=== PATIENT | male | born 1930 | race Caucasian/White ===

== ENCOUNTER 2018-09-10 07:56 | Emergency (ER) | payer MEDICARE ==
--- OUTSIDE RECORDS SUMMARY | 2018-09-10 08:02 | XMS REPORT | Continuity of Care Document ---
:1930 External Reference #:[id number] Author Name Robert Agnes Care Team Providers Name Role Phone Jonh Ramos MD Primary Care Physician Unavailable Payers Date Identification Numbers Payment Provider Subscriber Effective: 2014 Policy Number: [id number] [facility] (Medicare) Giovanni Neal PayID: [id number] [address] Advance Directives Description No Information Available Problems Date Description Provider Status Onset: 07/12/2017 Ankylosing spondylitis Franco Kimble M.D., FACP Onset: 01/09/2017 Obstructive sleep apnea syndrome Franco Kimble M.D.,SUSIE Onset: 01/09/2017 Mixed hyperlipidemia Franco Kimble M.D., FACP Onset: 01/09/2017 Ex-smoker Franco Kimble M.D.,FACP Onset: 01/09/2017 Acquired thrombocytopenia Franco Kimble M.D., FACP Note: mild Onset: 01/09/2017 Asbestos-induced pleural plaque Jonh Ramos M.D., FACEric Active Onset: 01/09/2017 Impaired fasting glycaemia Jonh Ramos M.D.,FACEric Active Onset: 01/23/2017 Moderate persistent asthma Jonh Ramos M.D.,SUSIE Active Note: on PFTs Onset: 07/12/2017 Dupuytren's contracture Jonh Ramos M.D.,SUSIE Active Note: bilat Onset: 07/11/2018 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 First Brother due to Diabetes () - w/ complications First Sister bladder issues - iraheta First Sister due to Unknown Causes () Social History Type Date Description Comments Sex Unknown Marital Status Lives With Occupation Retired Tobacco Use Start: Unknown End: Former Cigarette Smoker Used to smoke 1 1/2 Unknown ppd Smoking Status Reviewed: 08/13/18 Former Cigarette Smoker Used to smoke 1 / ppd ETOH Use 01/09/2018 Denies alcohol use Tobacco Use Start: Unknown End: Patient is a former Smoked for 12 years Unknown smoker ages 20 to 32. Recreational Drug Use Denies Drug Use Exercise Type/Frequency Exercises regularly daily Allergies, Adverse Reactions, Alerts Date Description Reaction Status Severity Comments 08/26/2014 Succinylcholine Active Medications Medication Date Status Form Strength Qnty SIG Indications Ordering Provider Incruse 08/13 Active Aerosol 62.5mcg/I 30uni 1 inhalation J45.909 Domonique Ellipta nh ts once daily JUSTUS Conley Atorvastatin 07/11 Active Tablets 10mg 90tab take 1 E78.5 s tablet by Monika Ramos, mouth at Gregorio,FACP bedtime Knee Brace 01/30 Active Misc 2unit bilateral M17.9 Alfredito /2017 s knee brace Izabella, daily for M.D. stabilizatio n dx m35.7 History of OA of the knee Shingrix 01/09 Active Suspension 50mcg 2unit 0.5 Rec s milliliters Monika Ramos, intramuscula Gregorio,FACP r now and 2-3 months later repeat Neoprene 11/26 Active Misc 2unit use daily M25.561 Alfredito Patella Knee s for the Izabella, Support/Large right knee Carlos.Monika for stabilizatio n, Dz code 715.96 Baclofen 11/04 Active Tablets 10mg 10tab take 1 M54.5 [place] s tablets by Kitty, mouth twice M.D. a day Sulfasalazine 10/24 Active Tablets 500mg 270ta take one bs capsule/tab Izabella, every 8 M.D. hours (total of 3 per day) Spiriva 08/13 Active Aerosol 2.5mcg/Ac 4unit 2 puffs J45.40 Jonh Respimat t s every day Monika Ramos M.D.,[facility] Breo Ellipta 07/12 Active Aerosol 100-25mcg 60uni inhale 1 Jonh /Inh ts puff by Monika Ramos, mouth every M.D.,[facility] day Proventil HFA 01/23 Active Aerosol 108(90Bas 6.700 inhale two e) gm puffs by Monika Ramos, mcg/Act mouth four M.D.,FACP times a day as needed Aspirin Low Active Tablets DR 81mg 1 tabs by E78.5 Jonh Dose /0000 mouth every Monika Ramos, day M.D.,FAC Centrum Ultra Active Tablets 1 by mouth Unknown Mens /0000 every day Dorzolamide Active Solution 22.3-6.8m 2 drops both Unknown HCL/Timolol /0000 g/ml eyes every Maleate day Latanoprost Active Solution 0.005% 1 gtt Unknown /0000 bilateral eyes once daily at I-Caps Active Tablets 2 by mouth Unknown /0000 every day Eylea 00 Active Solution injection Unknown /0000 every 7-8 wks Rosuvastatin 01/09 Hx Tablets 5mg 90tab 1 by mouth E78.5 Jonh Calcium s every night Monika Ramos, - at bedtime M.D.,FACP 07/11 Hydrocodone-Ac 11/04 Hx Tablets 5-325mg 30tab 1 tab in the M54.5 Jim [place] etaminophen s morning 2tab Monika Ramos, - at bedtime M.D.,FACP 01/09 prn Benzonatate 06/03 Hx Capsules 200mg 30cap one by mouth s three times Amador, - daily as [employer] 09/01 needed for 2018 cough Arnuity 01/23 Hx Aerosol 100mcg/Ac 30uni Inhale 1 Jonh [facility] t ts puff By Monika Ramos, - Mouth Every M.D.,FAC Lipitor Hx Tablets 10mg one tab by Unknown /0000 mouth every - night at 12/26 Metformin HCL Hx Tablets ER 500mg 1 by mouth Unknown ER /0000 24HR every day - 12/26 Naproxen Hx Tablets 250mg take 1-2 tab Unknown /0000 by mouth q12 - hours as 09/01 needed pain /2018 and inflmmation Dorzolamide Hx Solution 22.3-6.8m Price, HCL/Timolol /0000 g/ml Andree Beauchamp - 01/09 Atorvastatin Hx Tablets 10mg 90tab one tab by E78.5 Jonh Calcium /0000 s mouth every Monika Ramos, - night at M.D.,FACP 01/09 Medications Administered in Office Medication Date Status Form Strength Qnty SIG Indications Ordering Provider Shingrix Administered Injection Jonh pharmacy 019 Monika Ramos, administered M.D.,[facility] Technetium TC Administered Injection Diaz Frank 99M 015 Brand, TetrofosminGregorio Per Unit Dose Up To 40 Millicuries Immunizations CPT Code Status Date Vaccine Reaction Lot # [id number] Given 03/12/2018 Fluzone High Dose [id number] Given 02/22/2017 Influenza Virus Vaccine, Quadrivalent, [id number] Split, Preservative Free 02376 Given 01/09/2017 Pneumococcal Conjugate Vaccine 13 no reaction [id number] Valent For Intramuscular Use 42951 Given 06/30/1997 Pneumonia Vaccine 21683 Given 08/25/1996 Tetanus And Diptheria (Td) For Adult Use Preservative Free Vital Signs Date Vital Result Comment 08/13/2018 10:15am Height 68.5 inches 5'8.50" Weight 235.00 lb Heart Rate 80 /min BP Systolic Sitting 140 mmHg Lue large cuff BP Diastolic Sitting 86 mmHg Lue large cuff Respiratory Rate 16 /min O2 % BldC Oximetry 94 % BMI (Body Mass Index) 35.2 kg/m2 07/11/2018 10:14am Height 68.5 inches 5'8.50" Weight 229.50 lb Heart Rate 72 /min BP Systolic 120 mmHg BP Diastolic 70 mmHg Body Temperature 97.4 F O2 % BldC Oximetry 97 % BMI (Body Mass Index) 34.4 kg/m2 05/05/2018 8:21am Height 68.5 inches 5'8.50" Weight 227.25 lb Heart Rate 82 /min BP Systolic Sitting 122 mmHg BP Diastolic Sitting 78 mmHg Pain Level 3 O2 % BldC Oximetry 94 % BMI (Body Mass Index) 34.0 kg/m2 02/13/2018 11:16am Height 68.5 inches 5'8.50" Weight 222.00 lb Heart Rate 72 /min BP Systolic Sitting 116 mmHg BP Diastolic Sitting 70 mmHg Respiratory Rate 14 /min O2 % BldC Oximetry 88 % BMI (Body Mass Index) 33.3 kg/m2 01/30/2018 9:29am Height 68.5 inches 5'8.50" Weight 221.38 lb Heart Rate 89 /min BP Systolic Sitting 118 mmHg BP Diastolic Sitting 68 mmHg Pain Level 4 O2 % BldC Oximetry 98 % BMI (Body Mass Index) 33.2 kg/m2 01/09/2018 9:59am Height 68.5 inches 5'8.50" Weight 221.00 lb Heart Rate 83 /min BP Systolic Sitting 118 mmHg BP Diastolic Sitting 66 mmHg Body Temperature 96.6 F O2 % BldC Oximetry 93 % BMI (Body Mass Index) 33.1 kg/m2 11/26/2017 8:58am Height 68.5 inches 5'8.50" Weight 233.25 lb Heart Rate 68 /min BP Systolic Sitting 127 mmHg BP Diastolic Sitting 72 mmHg Respiratory Rate 14 /min Pain Level 2 BMI (Body Mass Index) 34.9 kg/m2 11/04/2017 3:33pm Height 68.5 inches 5'8.50" Weight 232.00 lb Heart Rate 80 /min BP Systolic 130 mmHg BP Diastolic 78 mmHg O2 % BldC Oximetry 95 % BMI (Body Mass Index) 34.8 kg/m2 10/24/2017 11:47am Height 68.5 inches 5'8.50" Weight 234.00 lb Heart Rate 74 /min BP Systolic 130 mmHg BP Diastolic 70 mmHg Pain Level 4 O2 % BldC Oximetry 94 % BMI (Body Mass Index) 35.1 kg/m2 09/02/2017 10:56am Height 68.5 inches 5'8.50" Weight 244.25 lb Heart Rate 84 /min BP Systolic Sitting 128 mmHg BP Diastolic Sitting 72 mmHg Respiratory Rate 14 /min Body Temperature 97.9 F Pain Level 2 BMI (Body Mass Index) 36.6 kg/m2 08/13/2017 9:05am Height 68.5 inches 5'8.50" Weight 242.00 lb Heart Rate 84 /min BP Systolic Sitting 128 mmHg BP Diastolic Sitting 68 mmHg Respiratory Rate 14 /min O2 % BldC Oximetry 95 % BMI (Body Mass Index) 36.3 kg/m2 Neck Circumference in inches 17.5 07/12/2017 10:19am Height 68.5 inches 5'8.50" Weight 241.00 lb Heart Rate 94 /min BP Systolic Sitting 138 mmHg BP Diastolic Sitting 80 mmHg Body Temperature 96.9 F O2 % BldC Oximetry 94 % BMI (Body Mass Index) 36.1 kg/m2 01/09/2017 10:11am Weight 234.00 lb Heart Rate 72 /min BP Systolic Sitting 140 mmHg BP Diastolic Sitting 80 mmHg Body Temperature 97.0 F O2 % BldC Oximetry 97 % 12/26/2016 9:02am Height 68.5 inches 5'8.50" Weight 233.00 lb Heart Rate 96 /min BP Systolic 144 mmHg BP Diastolic 92 mmHg Body Temperature 97.9 F O2 % BldC Oximetry 98 % BMI (Body Mass Index) 34.9 kg/m2 10/29/2014 9:04am Height 68.5 inches 5'8.50" Weight 229.00 lb w/o shoes Heart Rate 84 /min reg BP Systolic Sitting 112 mmHg Lue, reg cuff BP Diastolic Sitting 70 mmHg Lue, reg cuff BP Systolic Standing 110 mmHg Lue BP Diastolic Standing 74 mmHg Lue Respiratory Rate 18 /min BMI (Body Mass Index) 34.3 kg/m2 Ejection Fraction 55-60% visual Ef as of 08/18/14 08/26/2014 12:04pm Height 68.5 inches 5'8.50" Weight 239.00 lb w/o shoes Heart Rate 76 /min reg BP Systolic 144 mmHg LA, reg cuff, sitting BP Diastolic 90 mmHg LA, reg cuff, sitting BP Systolic Sitting 140 mmHg LA, reg cuff BP Diastolic Sitting 80 mmHg LA, reg cuff BP Systolic Standing 130 mmHg LA BP Diastolic Standing 84 mmHg LA Respiratory Rate 18 /min BMI (Body Mass Index) 35.8 kg/m2 Results Test Date Facility Test Result H/L Range Note Lipid Profile 08/06/2018 [facility] Triglycerides 110 mg/dL 1 (Trig/Chol/HDL) [address] [place] [address] [phone] Cholesterol 155 mg/dL 2 HDL Cholesterol 54.5 mg/dL 3 LDL Cholesterol 79 mg/dL 4 Basic Metabolic Panel 08/06/2018 [facility] Sodium 141 mmol/L N 135-[address] [place] [address] [phone] Potassium 4.0 mmol/L N 3.5-5.0 Chloride 106 mmol/L N 101-111 Co2 Carbon Dioxide 26 mmol/L N 22-32 Anion Gap 9 mmol/L N 2-11 Glucose 131 mg/dL High 70-100 Blood Urea Nitrogen 15 mg/dL N 6-24 Creatinine 1.11 mg/dL N 0.67-1.17 BUN/Creatinine Ratio 13.5 N 8-20 Calcium 9.2 mg/dL N 8.6-10.3 Egfr Non- 62.8 >60 Egfr 76.0 >60 5 Laboratory test 05/09/2018 [facility] Erythrocyte Sed 10 mm/Hr N 0-40 [address] [place] [address] [phone] C Reactive Protein 1.07 mg/L N <8.01 7 CBC Auto Diff 05/09/2018 [facility] White Blood 6.2 10^3/uL N 3.5-10.[address] [place] [address] [phone] Red Blood Count 5.05 10^6/uL N 4.00-5.40 Hemoglobin 16.0 g/dL N 14.0-18.0 Hematocrit 48 % N 42-52 Mean Corpuscular Volume 94 fL N 80-94 Mean Corpuscular Hemoglobin 32 pg High 27-31 Mean Corpuscular HGB Conc 34 g/dL N 31-36 Red Cell Distribution Width 14 % N 10.5-15 Platelet Count 134 10^3/uL Low 150-450 Mean Platelet Volume 8.0 fL N 7.4-10.4 Abs Neutrophils 3.9 10^3/uL N 1.5-7.7 Abs Lymphocytes 1.5 10^3/uL N 1.0-4.8 Abs Monocytes 0.6 10^3/uL N 0-0.8 Abs Eosinophils 0.2 10^3/uL N 0-0.6 Abs Basophils 0 10^3/uL N 0-0.2 Abs Nucleated RBC 0 10^3/uL Granulocyte % 62.8 % Lymphocyte % 23.9 % Monocyte % 10.2 % Eosinophil % 2.9 % Basophil % 0.2 % Nucleated Red Blood Cells % 0 Comp Metabolic Panel 05/09/2018 [facility] Sodium 143 mmol/L N 135-[address] [place] [address] [phone] Potassium 3.9 mmol/L N 3.5-5.0 Chloride 108 mmol/L N 101-111 Co2 Carbon Dioxide 28 mmol/L N 22-32 Anion Gap 7 mmol/L N 2-11 Glucose 97 mg/dL N 70-100 Blood Urea Nitrogen 17 mg/dL N 6-24 Creatinine 1.01 mg/dL N 0.67-1.17 BUN/Creatinine Ratio 16.8 N 8-20 Calcium 9.2 mg/dL N 8.6-10.3 Total Protein 6.9 g/dL N 6.4-8.9 Albumin 4.5 g/dL N 3.2-5.2 Globulin 2.4 g/dL N 2-4 Albumin/Globulin Ratio 1.9 N 1-3 Total Bilirubin 0.60 mg/dL N 0.2-1.0 Alkaline Phosphatase 95 U/L N 34-104 Alt 25 U/L N 7-52 Ast 24 U/L N 13-39 Egfr Non- 70.2 >60 Egfr 84.9 >60 8 Laboratory test 11/26/2017 [facility] Erythrocyte Sed 12 mm/Hr N 0-[address] [place] [address] [phone] C Reactive Protein 1.55 mg/L N <8.01 Lipid Profile 11/26/2017 [facility] Triglycerides 203 mg/dL 9 (Trig/Chol/HDL) [address] [place] [address] [phone] Cholesterol 141 mg/dL 10 HDL Cholesterol 33.3 mg/dL 11 LDL Cholesterol 67 mg/dL 12 CBC Auto Diff 11/26/2017 [facility] White Blood 5.4 10^3/uL N 3.5-10.[address] [place] [address] [phone] Red Blood Count 5.15 10^6/uL N 4.00-5.40 Hemoglobin 16.2 g/dL N 14.0-18.0 Hematocrit 47 % N 42-52 Mean Corpuscular Volume 92 fL N 80-94 Mean Corpuscular Hemoglobin 32 pg High 27-31 Mean Corpuscular HGB Conc 34 g/dL N 31-36 Red Cell Distribution Width 14 % N 10.5-15 Platelet Count 127 10^3/uL Low 150-450 Mean Platelet Volume 8.2 um3 N 7.4-10.4 Abs Neutrophils 3.4 10^3/uL N 1.5-7.7 Abs Lymphocytes 1.3 10^3/uL N 1.0-4.8 Abs Monocytes 0.5 10^3/uL N 0-0.8 Abs Eosinophils 0.2 10^3/uL N 0-0.6 Abs Basophils 0 10^3/uL N 0-0.2 Abs Nucleated RBC 0 10^3/uL Granulocyte % 63.2 % N 38-83 Lymphocyte % 23.5 % Low 25-47 Monocyte % 9.5 % High 0-7 Eosinophil % 3.2 % N 0-6 Basophil % 0.6 % N 0-2 Nucleated Red Blood Cells % 0.2 Comp Metabolic Panel 11/26/2017 [facility] Sodium 141 mmol/L N 135-[address] [place] [address] [phone] Potassium 4.4 mmol/L N 3.5-5.0 Chloride 106 mmol/L N 101-111 Co2 Carbon Dioxide 27 mmol/L N 22-32 Anion Gap 8 mmol/L N 2-11 Glucose 122 mg/dL High 70-100 Blood Urea Nitrogen 14 mg/dL N 6-24 Creatinine 1.10 mg/dL N 0.67-1.17 BUN/Creatinine Ratio 12.7 N 8-20 Calcium 9.5 mg/dL N 8.6-10.3 Total Protein 6.9 g/dL N 6.4-8.9 Albumin 4.4 g/dL N 3.2-5.2 Globulin 2.5 g/dL N 2-4 Albumin/Globulin Ratio 1.8 N 1-3 Total Bilirubin 0.80 mg/dL N 0.2-1.0 Alkaline Phosphatase 70 U/L N 34-104 Alt 24 U/L N 7-52 Ast 29 U/L N 13-39 Egfr Non- 63.6 >60 Egfr 77.0 >60 13 Laboratory test 09/02/2017 [facility] Erythrocyte Sed 8 mm/Hr N 0-[address] [place] [address] [phone] C Reactive Protein 1.49 mg/L N < 5.00 14 Creatine Kinase(CK) 106 U/L N 10-223 TSH (Thyroid Stim Horm) 2.46 mcIU/mL N 0.34-5.60 Hla B27 09/02/2017 [facility] Hla B27 Negative [address] [place] [address] [phone] Hla B27 Interp See Comment 16 Vitamin B12 And 09/02/2017 [facility] Vitamin B12 711 pg/mL N 180-914 17 Folate Serum [address] [place] [address] [phone] Folic Acid (Folate) > 20.00 ng/mL >3.99 Laboratory test 08/15/2017 [facility] PSA Screening 2.627 0- 4.0 [address] ng/[place] [address] [phone] Order 08/13/2017 [facility] [address] <pending> Laboratory test 12/26/2016 [facility] Glucose 115 mg/dL High 70-[address] [place] [address] [phone] Laboratory test 12/26/2016 [facility] Hemoglobin A1c 6.1 5-7 finding CBC Auto Diff 12/26/2016 [facility] White Blood 6.0 N 3.5- 10.[address] Count 10^3/[place] [address] [phone] Red Blood Count 5.17 10^6/uL N 4.0-5.4 Hemoglobin 16.0 g/dL N 14.0-18.0 Hematocrit 48 % N 42-52 Mean Corpuscular Volume 93 fL N 80-94 Mean Corpuscular Hemoglobin 31 pg N 27-31 Mean Corpuscular HGB Conc 33 g/dL N 31-36 Red Cell Distribution Width 14 % N 10.5-15 Platelet Count 128 10^3/uL Low 150-450 Mean Platelet Volume 8 um3 N 7.4-10.4 Abs Neutrophils 4.0 10^3/uL N 1.5-7.7 Abs Lymphocytes 1.3 10^3/uL N 1.0-4.8 Abs Monocytes 0.5 10^3/uL N 0-0.8 Abs Eosinophils 0.2 10^3/uL N 0-0.6 Abs Basophils 0 10^3/uL N 0-0.2 Abs Nucleated RBC 0 10^3/uL N Granulocyte % 66.3 % N 38-83 Lymphocyte % 21.6 % Low 25-47 Monocyte % 8.7 % N 1-9 Eosinophil % 2.8 % N 0-6 Basophil % 0.6 % N 0-2 Nucleated Red Blood Cells % 0.1 N Laboratory test 12/26/2016 [facility] TSH (Thyroid 1.98 mcIU/mL N 0.34-5.60 [address] Stim Horm) [place] [address] [phone] Comp Metabolic 12/26/2016 [facility] Sodium 140 mmol/L N 133- [address] [place] [address] [phone] Potassium 4.3 mmol/L N 3.5-5.0 Chloride 105 mmol/L N 101-111 Co2 Carbon Dioxide 29 mmol/L N 22-32 Anion Gap 6 mmol/L N 2-11 Blood Urea Nitrogen 16 mg/dL N 6-24 Creatinine 1.11 mg/dL N 0.67-1.17 BUN/Creatinine Ratio 14.4 N 8-20 Calcium 9.3 mg/dL N 8.6-10.3 Total Protein 6.9 g/dL N 6.4-8.9 Albumin 4.4 g/dL N 3.2-5.2 Globulin 2.5 g/dL N 2-4 Albumin/Globulin Ratio 1.8 N 1-3 Total Bilirubin 0.90 mg/dL N 0.2-1.0 Alkaline Phosphatase 87 U/L N 34-104 Alt 23 U/L N 7-52 Ast 20 U/L N 13-39 Egfr Non- 63.1 N >60 Egfr 81.2 N >60 20 Lipid Profile 12/26/2016 [facility] Triglycerides 188 mg/dL N 21 (Trig/Chol/HDL) [address] [place] [address] [phone] Cholesterol 149 mg/dL N 22 HDL Cholesterol 39.9 mg/dL N 23 LDL Cholesterol 72 mg/dL N 24 CBC Auto Diff 09/08/2014 [facility] White Blood 6.5 10^3/uL N 4.8-10.[address] [place] [address] [phone] Red Blood Count 5.16 10^6/uL N 4.0-5.4 Hemoglobin 16.2 g/dL N 14.0-18.0 Hematocrit 48 % N 42-52 Mean Corpuscular Volume 93 fL N 80-94 Mean Corpuscular Hemoglobin 32 pg High 27-31 Mean Corpuscular HGB Conc 34 g/dL N 31-36 Red Cell Distribution Width 14 % N 10.5-15 Platelet Count 139 10^3/uL Low 150-450 Mean Platelet Volume 8 um3 N 7.4-10.4 Abs Neutrophils 3.4 10^3/uL N 1.5-7.7 Abs Lymphocytes 2.1 10^3/uL N 1.0-4.8 Abs Monocytes 0.7 10^3/uL N 0-0.8 Abs Eosinophils 0.2 10^3/uL N 0-0.6 Abs Basophils 0 10^3/uL N 0-0.2 Abs Nucleated RBC 0.01 10^3/uL N Granulocyte % 53.1 % N 38-83 Lymphocyte % 31.7 % N 25-47 Monocyte % 11.1 % High 1-9 Eosinophil % 3.5 % N 0-6 Basophil % 0.6 % N 0-2 Nucleated Red Blood Cells % 0.1 N 1 Desirable: <150 Borderline High: 150-199 High: 200-499 Very High: >500 2 Desirable: <200 Borderline High: 200-239 High: >239 3 Low: <40 Desirable: 40-60 High: >60 4 Desirable: <100 Near Optimal: 100-129 Borderline High: 130-159 High: 160-189 Very High: >189 5 Because ethnic data is not always readily available, this report includes an eGFR for both -Americans and non- Americans. The National Kidney Disease Education Program (NKDEP) does not endorse the use of the MDRD equation for patients that are not between the ages of 18 and 70, are , have extremes of body size, muscle mass, or nutritional status, or are non- or non-. According to the National Kidney Foundation, irrespective of diagnosis, the stage of the disease is based on the level of kidney function: Stage Description GFR(mL/min/1.73 m(2)) 1 Kidney damage with normal or decreased GFR 90 2 Kidney damage with mild decrease in GFR 60-89 3 Moderate decrease in GFR 30-59 4 Severe decrease in GFR 15-29 5 Kidney failure <15 (or dialysis) 6 Please check labs today 7 Please check labs today 8 Because ethnic data is not always readily available, this report includes an eGFR for both -Americans and non- Americans. The National Kidney Disease Education Program (NKDEP) does not endorse the use of the MDRD equation for patients that are not between the ages of 18 and 70, are , have extremes of body size, muscle mass, or nutritional status, or are non- or non-. According to the National Kidney Foundation, irrespective of diagnosis, the stage of the disease is based on the level of kidney function: Stage Description GFR(mL/min/1.73 m(2)) 1 Kidney damage with normal or decreased GFR 90 2 Kidney damage with mild decrease in GFR 60-89 3 Moderate decrease in GFR 30-59 4 Severe decrease in GFR 15-29 5 Kidney failure <15 (or dialysis) 9 Desirable: <150 Borderline High: 150-199 High: 200-499 Very High: >500 10 Desirable: <200 Borderline High: 200-239 High: >239 11 Low: <40 Desirable: 40-60 High: >60 12 Desirable: <100 Near Optimal: 100-129 Borderline High: 130-159 High: 160-189 Very High: >189 13 Because ethnic data is not always readily available, this report includes an eGFR for both -Americans and non- Americans. The National Kidney Disease Education Program (NKDEP) does not endorse the use of the MDRD equation for patients that are not between the ages of 18 and 70, are , have extremes of body size, muscle mass, or nutritional status, or are non- or non-. According to the National Kidney Foundation, irrespective of diagnosis, the stage of the disease is based on the level of kidney function: Stage Description GFR(mL/min/1.73 m(2)) 1 Kidney damage with normal or decreased GFR 90 2 Kidney damage with mild decrease in GFR 60-89 3 Moderate decrease in GFR 30-59 4 Severe decrease in GFR 15-29 5 Kidney failure <15 (or dialysis) 14 Acute inflammation: >10.00 15 REFERENCE VALUE Not Applicable 16 RESULT: HLA-B27 antigen was not detected. ADDITIONAL INFORMATION Method: Flow Cytometry Performing Laboratory CLIA# [id number] Test Performed by: [address] [address] 17 Normal Range 180 to 914 Indeterminate Range 145 to 180 Deficient Range <145 18 Serum levels of PSA measured using the Nicole Keira DXI Hybritech immunoassay should not be interpreted as absolute evidence of the presence or absence of disease. The PSA value should be used in conjunction with other pertinent clinical diagnostic procedures. The values obtained with different assay methods or kits cannot be used interchangeably. 19 FASTING 10 HOUR 20 Because ethnic data is not always readily available, this report includes an eGFR for both -Americans and non- Americans. The National Kidney Disease Education Program (NKDEP) does not endorse the use of the MDRD equation for patients that are not between the ages of 18 and 70, are , have extremes of body size, muscle mass, or nutritional status, or are non- or non-. According to the National Kidney Foundation, irrespective of diagnosis, the stage of the disease is based on the level of kidney function: Stage Description GFR(mL/min/1.73 m(2)) 1 Kidney damage with normal or decreased GFR 90 2 Kidney damage with mild decrease in GFR 60-89 3 Moderate decrease in GFR 30-59 4 Severe decrease in GFR 15-29 5 Kidney failure <15 (or dialysis) 21 Desirable <150 Borderline high 150-199 High 200-499 Very High >500 22 Desirable <200 Borderline high 200-239 High >239 23 Low <40 Desirable: 40-60 High: >60 24 Desirable: <100 mg/dL Near Optimal: 100-129 mg/dL Borderline High: 130-159 mg/dL High: 160-189 mg/dL Very High: >189 mg/dL Procedures Date Code Description Status 12/04/2017 [id number] Diabetic Retinal Eye Exam Completed 08/13/2017 12799 Pulmonary Stress Test Simple Completed 08/13/2017 10063 Pulmonary Stress Testing, Inc Measurement Heart Rate, Completed Oximetry 01/14/2017 97144 Diffusing Capacity Completed 01/14/2017 55331 Plethysmography Determination Lung Volumes & Per Completed Airway Resist 01/14/2017 67788 Pulmonary Function><Bronchodil Completed 12/26/2016 09776 EKG Tracing & Interpretation Completed 09/17/2014 62978 Stress Test Completed 09/17/2014 61122 Myocardial Perfusion Imaging Tomographic (Spect) Completed Multiple Studies 08/26/2014 05441 EKG Tracing & Interpretation Completed 08/18/2014 95606 ECHO Transthoracic, Real-Time 2D With Doppler And Completed Color Flow 06/12/2010 [id number] Colonoscopy Completed 04/11/2010 25222 EKG, Interpretation Only Completed Encounters Type Date Location Provider Dx Diagnosis Office Visit 07/11/2018 [facility] Frank Z00.01 Encounter for 10:[facility] [place] Gregorio Ramos,FACP general adult [address] medical exam w abnormal findings 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 spondylitis of multiple sites in spine Z79.899 Other skilled nursing (current) drug therapy M54.5 Low back pain M17.9 Osteoarthritis of knee, unspecified Office Visit 02/13/2018 Pulmonology And Shirley J45.909 Unspecified asthma , 11:30a Sleep Services Of MD Luis uncomplicated [facility] G47.33 Obstructive sleep apnea (adult) (pediatric) J98.4 Other disorders of lung Office Visit 01/30/2018 9:20a Rheumatology Alfredito M45.0 Ankylosing Services Of Xavier Parekh M.D. 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 spondylitis of multiple sites in spine M54.5 Low back pain G62.9 Polyneuropathy, unspecified M25.561 Pain in right knee Z79.899 Other skilled nursing (current) drug therapy Office Visit 11/04/2017 [facility] Vira Beard M54.5 Low back pain 3:20p Medicine Tiffany Tang M.D. Rd Office Visit 10/24/2017 Rheumatology Dwayne Rodriguez5.0 Ankylosing 11:40a Services Of Xavier Perkins spondylitis of multiple sites in spine M79.1 Myalgia R53.1 Weakness G62.9 Polyneuropathy, unspecified Office Visit 09/02/2017 11:00a Rheumatology Alfredito Rice5.0 Ankylosing Services Of Xavier Parekh M.D. spondylitis of multiple sites in spine M79.1 Myalgia R53.1 Weakness G62.9 Polyneuropathy, unspecified M25.561 Pain in right knee Office Visit 01/09/2017 10:20a [facility] Internal Jonh Frank R06.02 Shortness of Medicine Tiffany Ramos M.D.,FACP breath [address] I10 Essential (primary) hypertension Z23 Encounter for immunization Office Visit 12/26/2016 9:00a [facility] Internal Zsofipapo Trujillo, R06.02 Shortness of Medicine - [place] [employer] breath Rd E66.9 Obesity, unspecified E78.5 Hyperlipidemia, unspecified R73.9 Hyperglycemia, unspecified R03.0 Elevated blood-pressure reading, w/o diagnosis of htn G47.33 Obstructive sleep apnea (adult) (pediatric) M25.561 Pain in right knee M25.551 Pain in right hip Office Visit 10/29/2014 9:15a [facility] Diaz D. 786.05 Shortness Of Of Xavier Lopez M.D. Breath Office Visit 08/26/2014 12:15p [facility] Diaz Frank 786.05 Shortness Of Of [facility] Gregorio Lopez Breath Plan of Treatment Future Appointment(s):09/04/2018 9:30 am - Shirley Smith MD at Pulmonology And Sleep Services Of [facility]01/08/2019 8:40 am - Rosmery Holder MD at [facility] Internal Medicine [facility]11/04/2018 8:00 am - Alfredito Parekh M.D. at Rheumatology Services Of [facility]08/13/2018 - Shirley Smith MDJ45.909 Unspecified asthma, uncomplicatedNew Medication:Incruse Ellipta 62.5 mcg/Inh - 1 inhalation once elpatE90.33 Obstructive sleep apnea (adult) (pediatric)J98.4 Other disorders of lungNew Xrays:CT Chest W/O, Ordered: 08/13/18Follow up:2 wks, CT flfkjF98.35 Body mass index (BMI) 35.0-35.9, adult
[2018-09-10 08:11] VITALS: BP 153/76
--- NOTE | 2018-09-10 08:32 | UC ---
General HPI - HPI Summary HPI Summary: Here with - few days ago woke with red itchy spot on his forehead, it has gotten more red and discolored and they tried to get him in to see his regular agriculture worker -Dr. Barboza but she is not able to see him until Mid-September. No new creams No bites or trauma. Not painful but feels it there. No vision changes. No fever. No URI symptoms. Otherwise feeling well. Meds reviewed. - History of Current Complaint Chief Complaint: UCSkin Stated Complaint: SKIN ISSUE Time Seen by Provider: 09/10/18 08:19 Pain Intensity: 0 - Allergy/Home Medications Allergies/Adverse Reactions: Allergies Allergy/AdvReac Type Severity Reaction Status Date / Time No Known Allergies Allergy Verified 10/15/14 08:44 Home Medications: Home Medications Albuterol HFA INHALER* [Ventolin HFA Inhaler*] 2 puff PO Q6H PRN 09/10/18 [ History Confirmed 09/10/18] Fluticasone/Vilanterol MDI(NF) [Breo Ellipta MDI 100/25(NF)] 1 puff PO Q72HR MDD 1 09/10/18 [History Confirmed 09/10/18] PMH/Surg Hx/FS Hx/Imm Hx Previously Healthy: Yes Endocrine History: Dyslipidemia Respiratory History: Asthma - Surgical History Surgical History: Yes Surgery Procedure, Year, and Place: R knee, TURP, chest mass biopsy, BILATERAL CATARACTS - Social History Alcohol Use: None Substance Use Type: None Smoking Status (MU): Never Smoked Tobacco Review of Systems All Other Systems Reviewed And Are Negative: Yes Skin: Positive: Rash Is Patient Immunocompromised?: No Physical Exam Triage Information Reviewed: Yes Appearance: Well-Appearing, No Pain Distress Vital Signs: Initial Vital Signs Temp 97.4 F 09/10/18 08:03 Pulse 93 09/10/18 08:03 Resp 18 09/10/18 08:03 BP 153/76 09/10/18 08:03 Pulse Ox 96 09/10/18 08:03 Vital Signs Reviewed: Yes Eyes: Positive: Conjunctiva Clear ENT: Positive: Normal ENT inspection Dental Exam: Normal Neck: Positive: Supple, Nontender Skin Exam: Other - 3-4 cm erythematous lesion on forehead slightly involuted vesicular appearing more erythematous center Course/Dx - Course Course Of Treatment: This is an 88 yr old with a forehead lesions 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 Barboza's office will see you today, as long as you arrive by 10:30 Blood pressure is slightly elevated, recommend follow up with your PCP - Diagnoses Provider Diagnosis: Shingles Discharge - Sign-Out/Discharge Documenting (check all that apply): Patient Departure All imaging exams completed and their final reports reviewed: No Studies - Discharge Plan Condition: Good Disposition: HOME Prescriptions: ValACYclovir (*) [Valtrex 1 GM(*)] 1 gm PO Q8HR #21 tab Patient Education Materials: Shingles (ED) Referrals: Rosmery Holder MD [Primary Care Provider] - Additional Instructions: Start Valtrex as prescribed - Drink plenty of water while taking medication Monitor rash - if rash persists or worsens despite starting medication, recommend follow up with PCP sooner Dr. Barboza's office will see you today, as long as you arrive by 10:30 Blood pressure is slightly elevated, recommend follow up with your PCP - Billing Disposition and Condition Condition: GOOD Disposition: Home
== END 2018-09-10 08:45 | disposition home or self-care (01) ==
LOC: UCEAST 07:56
DX: B02.9 Zoster without complications (principal); E78.5 Hyperlipidemia, unspecified; J45.909 Unspecified asthma, uncomplicated
CPT/HCPCS: 99212; G0463

== ENCOUNTER 2021-01-17 06:35 | Inpatient (IN) ==
[~2021-01-17 06:35] MED LIST: Buffered Lidocaine 1% SYRIN 1 ml INTRADERM ONE; Famotidine IV 10 MG/ML 2 ml VIAL (20 mg) IV ONE; Lactated Ringers 1000 ml BAG 1,000 ML IV SCH
[2021-01-17] MEDS ORDERED: Famotidine IV 10 MG/ML 2 ml VIAL (20 mg) ONE (06:54)
[2021-01-17] MEDS ORDERED: ceFAZolin 2 GM in NS PREMIX 2 GM/100 ML BAG IVPB ONE (06:54)
[2021-01-17] MEDS ORDERED: Glycopyrrolate IV 0.2 MG/ML 1 ML VIAL ONE (07:10)
[2021-01-17] MEDS ORDERED: Propofol 10 MG/ML 20 ML BTL ONE (07:10)
[2021-01-17] MEDS ORDERED: fentaNYL 100 mcg/2 ml 50 MCG/ML VIAL ONE (07:10)
[2021-01-17] MEDS ORDERED: Phenylephrine IV 10 MG/ML 1 ml VIAL ONE (07:11)
[2021-01-17] MEDS ORDERED: Lidocaine 2% PF 5 ML VIAL ONE (07:11)
[2021-01-17] MEDS ORDERED: Acetaminophen IV 1 GM/100ML 100 ML IV ONE (07:11)
[2021-01-17] MEDS ORDERED: ROPIVACAINE 5 MG/ML 30 ML BTL (0.5%) ONE (07:13)
[2021-01-17] MEDS ORDERED: Buffered Lidocaine 1% SYRIN 1 ml INTRADERM ONE (07:17)
[2021-01-17] MEDS ORDERED: Propofol 10 mg/ml 100 ML BTL 100 ML ONE (07:22)
[2021-01-17] MEDS ORDERED: Morphine 2 MG/ML SYRINGE IV PRN (10:15)
[2021-01-17] MEDS ORDERED: diPHENhydraMINE IV 50 MG/ML 1 ml VIAL (BENADRYL) IV PRN (10:15)
[2021-01-17] MEDS ORDERED: Ondansetron ODT 4 mg TAB 4 MG TAB PO PRN (10:15)
[2021-01-17] MEDS ORDERED: Ondansetron 4 mg VIAL 2 MG/ML 2 ml VIAL IV PRN (10:15)
[2021-01-17] MEDS ORDERED: diPHENhydraMINE 25 mg TAB PO PRN (10:15)
[2021-01-17] MEDS ORDERED: Polyethylene Glycol 3350 17 GM PACKET PO PRN (10:21)
[2021-01-17] MEDS ORDERED: Magnesium Hydroxide LIQ 30 ML UDC PO PRN (10:21)
[2021-01-17] MEDS ORDERED: Senna TAB 8.6 mg TAB PO PRN (10:21)
[2021-01-17] MEDS ORDERED: Albuterol HFA INHALER 8 gm MDI INH PRN (10:22)
[2021-01-17] MEDS: Lactulose 30 ml UDC PO SCH ×2 (13:59→19:17)
[2021-01-17] MEDS: ceFAZolin 1 GM ADVAN 1 GM in NS 0.9% 50 ML 50 ML IVPB SCH (16:46)
[2021-01-17] MEDS: Mometasone/Formoter 100/5 MDI INH SCH (19:05)
[2021-01-17] MEDS: Magnesium Hydroxide LIQ 30 ML UDC PO SCH (19:17)
[2021-01-17] MEDS ORDERED: Latanoprost 0.005% 2.5 ml BTL LEFT EYE SCH (21:00)
[2021-01-18] MEDS: Lactated Ringers 1000 ml BAG 1,000 ML IV SCH ×2 (00:01→12:15)
[2021-01-18] MEDS: ceFAZolin 1 GM ADVAN 1 GM in NS 0.9% 50 ML 50 ML IVPB SCH ×2 (00:03→08:29)
[2021-01-18] MEDS: Mometasone/Formoter 100/5 MDI INH SCH (07:12)
[2021-01-18 07:17] LABS: Hematocrit 34 % (42-52); Hemoglobin 11.9 g/dL (14.0-18.0); Mean Platelet Volume 7.6 fL (7.4-10.4); Platelet Count 125 10^3/uL (150-450)
[2021-01-18 07:34] LABS: Calcium 8.4 mg/dL (8.6-10.3); EGFR African American 78.1 (>60); EGFR Non-African American 64.5 (>60); Potassium 4.1 mmol/L (3.5-5.0)
[2021-01-18] MEDS: Magnesium Hydroxide LIQ 30 ML UDC PO SCH (08:30)
[2021-01-18] MEDS: Lactulose 30 ml UDC PO SCH ×2 (08:30→14:16)
[2021-01-18] MEDS ORDERED: Vitamin THERAPEUTIC TAB PO SCH (09:00)
[2021-01-18 11:54] VITALS: BP 134/59
[2021-01-18] MEDS ORDERED: NS 0.9% 250 ml 250 ML IV ONE (14:08)
== END 2021-01-18 16:10 | disposition home or self-care (01) | DRG 470 ==
LOC: AA 06:35 → SSU 10:15
PROVIDERS: ADMIT Orthopaedic Surgery Adult Reconstructive Orthopaedic Surgery; ATTEND Orthopaedic Surgery Adult Reconstructive Orthopaedic Surgery

== ENCOUNTER 2021-05-18 06:51 | Inpatient (IN) ==
[~2021-05-18 06:51] MED LIST changes: +DiMENhydriNATE IV 50 mg/ml 1 ml VIAL IV PUSH PRN; -Famotidine IV 10 MG/ML 2 ml VIAL (20 mg) IV ONE; +Naloxone 0.4 mg VIAL 0.4 mg/ml 1 ml VIAL IV PRN; +Ondansetron 4 mg VIAL 2 MG/ML 2 ml VIAL IV PRN; +fentaNYL 100 mcg/2 ml 50 MCG/ML VIAL IV PRN; +oxyCODONE/Acetamin 5/325 mg TAB PO PRN
[2021-05-18] MEDS ORDERED: ceFAZolin 2 GM PREMIX 2 GM/50 ML BAG ONE (07:16)
[2021-05-18] MEDS ORDERED: Midazolam 5 mg/5 ml VIAL 1 mg/ml 5 ml VIAL (5 mg) ONE (09:00)
[2021-05-18] MEDS ORDERED: fentaNYL 250 mcg/5 ml 50 MCG/ML 5 ml VIAL (250 MCG) ONE (09:00)
[2021-05-18] MEDS ORDERED: Phenylephrine 40 mcg/mL 10mL (400mcg) SYRINGE ONE (09:53)
[2021-05-18] MEDS ORDERED: EPHEDrine (Pressors) 50 MG/ML VIAL ONE (11:09)
[2021-05-18] MEDS ORDERED: Ondansetron ODT 4 mg TAB 4 MG TAB PO PRN (11:40)
[2021-05-18] MEDS ORDERED: diPHENhydraMINE 25 mg TAB PO PRN (11:40)
[2021-05-18] MEDS ORDERED: Ondansetron 4 mg VIAL 2 MG/ML 2 ml VIAL IV PRN (11:40)
[2021-05-18] MEDS ORDERED: diPHENhydraMINE IV 50 MG/ML 1 ml VIAL (BENADRYL) IV PRN (11:40)
[2021-05-18] MEDS ORDERED: Magnesium Hydroxide LIQ 30 ML UDC PO PRN (11:40)
[2021-05-18] MEDS ORDERED: Lactulose 30 ml UDC PO PRN (11:40)
[2021-05-18] MEDS ORDERED: Albuterol HFA INHALER 8 gm MDI INH PRN (11:47)
[2021-05-18] MEDS ORDERED: oxyCODONE/Acetamin 5/325 mg TAB ONE (12:58)
[2021-05-18] MEDS ORDERED: Ondansetron 4 mg VIAL 2 MG/ML 2 ml VIAL ONE (12:58)
[2021-05-18] MEDS: Lactated Ringers 1000 ml BAG 1,000 ML IV SCH (13:44)
[2021-05-18] MEDS: ceFAZolin 1 GM ADVAN 1 GM in NS 0.9% 50 ML 50 ML IVPB SCH (17:15)
[2021-05-18] MEDS: Mometasone/Formoter 100/5 MDI INH SCH (19:19)
[2021-05-18] MEDS: Magnesium Hydroxide LIQ 30 ML UDC PO SCH (20:36)
[2021-05-18] MEDS ORDERED: Latanoprost 0.005% 2.5 ml BTL LEFT EYE SCH (21:00)
[2021-05-18] MEDS ORDERED: Multivitamins/Mins AREDS2 (NF) CAP PO SCH (21:00)
[2021-05-18] MEDS: DORZOLAMIDE 2% LEFT EYE SCH (23:50)
[2021-05-19] MEDS: Lactated Ringers 1000 ml BAG 1,000 ML IV SCH (00:27)
[2021-05-19] MEDS: ceFAZolin 1 GM ADVAN 1 GM in NS 0.9% 50 ML 50 ML IVPB SCH ×2 (01:23→08:39)
[2021-05-19 06:09] LABS: Hematocrit 35 % (42-52); Hemoglobin 11.8 g/dL (14.0-18.0); Mean Platelet Volume 7.3 fL (7.4-10.4); Platelet Count 139 10^3/uL (150-450)
[2021-05-19 06:25] LABS: Calcium 8.7 mg/dL (8.6-10.3); Potassium 4.4 mmol/L (3.5-5.0)
[2021-05-19] MEDS: Mometasone/Formoter 100/5 MDI INH SCH (08:21)
[2021-05-19 08:37] VITALS: BP 102/45
[2021-05-19] MEDS: Magnesium Hydroxide LIQ 30 ML UDC PO SCH (08:39)
[2021-05-19] MEDS: DORZOLAMIDE 2% LEFT EYE SCH (08:40)
[2021-05-19] MEDS ORDERED: Vitamin THERAPEUTIC TAB PO SCH (09:00)
== END 2021-05-19 12:40 | disposition home or self-care (01) | DRG 470 ==
LOC: AA 06:51 → INTOOBSV 11:40 → SSU 13:32
PROVIDERS: ADMIT Orthopaedic Surgery Adult Reconstructive Orthopaedic Surgery; ATTEND Orthopaedic Surgery Adult Reconstructive Orthopaedic Surgery

== ENCOUNTER 2021-05-20 20:57 | Observation (INO) ==
[2021-05-20] MEDS ORDERED: NS 0.9% 1000 ml BAG 1,000 ML IV ONE (21:08)
[2021-05-20] MEDS ORDERED: Iodixanol (CONTRAST) 320 MG/ML 100 ML SDV IV ONE (21:30)
[2021-05-20 21:41] LABS: Hematocrit 34 % (42-52); Hemoglobin 11.4 g/dL (14.0-18.0); Mean Corpuscular HGB Conc 34 g/dL (31-36); Mean Corpuscular Hemoglobin 31 pg (27-31); Mean Corpuscular Volume 92 fL (80-94); Mean Platelet Volume 7.6 fL (7.4-10.4); Platelet Count 165 10^3/uL (150-450); Red Blood Count 3.64 10^6 /uL (4.18-5.48); Red Cell Distribution Width 15 % (10-15); White Blood Count 9.3 10^3/uL (3.5-10.8)
[2021-05-20] MEDS ORDERED: Lactated Ringers 1000 ml BAG 1,000 ML IV ONE (21:49)
[2021-05-20 21:53] LABS: Activated Partial Thrombo Time 27.2 seconds (26.0-38.0); INR 1.29 (0.86-1.15)
[2021-05-20 21:57] LABS: ALT 16 U/L (7-52); Albumin 3.5 g/dL (3.2-5.2); Albumin/Globulin Ratio 1.3 (1-3); Alkaline Phosphatase 86 U/L (35-149); Blood Urea Nitrogen 30 mg/dL (6-24); CO2 Carbon Dioxide 25 mmol/L (22-32); Calcium 8.9 mg/dL (8.6-10.3); Chloride 102 mmol/L (101-111); Cholesterol 100 mg/dL; Globulin 2.8 g/dL (2-4); Glucose 134 mg/dL (70-100); LDL Cholesterol 47 mg/dL; Sodium 135 mmol/L (135-145); Total Protein 6.3 g/dL (6.4-8.9); Triglycerides 88 mg/dL; eGFR CKD-EPI 35.1 (>60)
[2021-05-20] MEDS ORDERED: Azithromycin 500 mg/250 ml NS 500 MG/250 ML BAG IVPB ONE (22:09)
[2021-05-20] MEDS ORDERED: cefTRIAXone 1 gm/50 mL NS BAG 1 GM/50 ML BAG IV ONE (22:09)
[2021-05-20 22:11] LABS: Anion Gap 8 mmol/L (2-11); Troponin I 0.03 ng/mL (<0.03)
[2021-05-20 22:12] LABS: ABS Monocytes 0.9 10^3/ul (0-0.8); ABS Neutrophils 7.3 10^3/ul (1.5-7.7); Eosinophil % 0.5 %; Lymphocyte % 10.6 %; Nucleated Red Blood Cells % 0.1
[2021-05-20 22:34] LABS: RBC Morphology Normal (Normal)
[2021-05-20] MEDS ORDERED: Albuterol HFA INHALER 8 gm MDI INH PRN (23:59)
[2021-05-21] MEDS ORDERED: NS 0.9% 1000 ml BAG 1,000 ML IV SCH (00:15)
[2021-05-21] MEDS ORDERED: Acetaminophen IV 1 GM/100ML VI 100 ML IV PRN (00:22)
[2021-05-21 00:50] LABS: Urine Appearance Clear; Urine Bilirubin Negative (Negative); Urine Blood Negative (Negative); Urine Color Yellow; Urine Glucose Negative (Negative); Urine Ketones 1+ (Negative); Urine Nitrite Negative (Negative); Urine Protein 1+(30 mg/dL) (Negative); Urine Specific Gravity 1.035 (1.002-1.030); Urine Urobilinogen Negative (Negative)
[2021-05-21 00:51] LABS: Potassium Redraw 4.3 mmol/L (3.5-5.0)
[2021-05-21 00:57] LABS: Urine Bacteria Absent (Absent); Urine Red Blood Cell Trace(0-2/hpf) (Absent); Urine White Blood Cell Trace(0-5/hpf) (Absent)
[2021-05-21 01:10] LABS: Troponin I 0.04 ng/mL (<0.03)
[2021-05-21 06:45] LABS: ABS Eosinophils 0.1 10^3/ul (0-0.6); ABS Monocytes 0.7 10^3/ul (0-0.8); ABS Neutrophils 6.2 10^3/ul (1.5-7.7); Eosinophil % 0.8 %; Hematocrit 34 % (42-52); Hemoglobin 11.3 g/dL (14.0-18.0); Lymphocyte % 12.9 %; Mean Corpuscular HGB Conc 34 g/dL (31-36); Mean Corpuscular Hemoglobin 31 pg (27-31); Mean Corpuscular Volume 92 fL (80-94); Mean Platelet Volume 7.7 fL (7.4-10.4); Platelet Count 139 10^3/uL (150-450); Red Blood Count 3.67 10^6 /uL (4.18-5.48); Red Cell Distribution Width 15 % (10-15)
[2021-05-21 06:58] LABS: Calcium 8.8 mg/dL (8.6-10.3); Potassium 4.2 mmol/L (3.5-5.0)
[2021-05-21 07:04] LABS: eGFR CKD-EPI 50.5 (>60)
[2021-05-21] MEDS ORDERED: CMCS: Dorzolamide 2% OPTH (NF) 10 ML BTL LEFT EYE SCH (09:00)
[2021-05-21 12:13] VITALS: BP 143/66
[2021-05-21] MEDS ORDERED: Aspirin EC 81 mg TAB.EC (enteric coated) PO SCH (13:00)
[2021-05-21] MEDS ORDERED: Latanoprost 0.005% 2.5 ml BTL LEFT EYE SCH (21:00)
[2021-05-21] MEDS ORDERED: Multivitamins/Minerals TAB PO SCH (21:00)
[2021-05-21] MEDS ORDERED: NF: Multivitamins/Mins AREDS2 (NF) CAP PO SCH (21:00)
== END 2021-05-21 14:30 | disposition home or self-care (01) ==
LOC: ED 20:57 → SUATTDRO 23:53 → INTOOBSV 23:53 → EDHOLD 23:53 → MEDTELE 05-21 03:29
PROVIDERS: ADMIT Internal Medicine; ATTEND Student in an Organized Health Care Education/Training Program